=== PATIENT | female | born 1985 | race Caucasian/White ===

== ENCOUNTER 2017-03-26 17:20 | Inpatient (IN) | payer OTHER ==
[~2017-03-26] VITALS: Ht 170.2 cm; Wt 90.0 kg
[2017-03-26] VITALS (8 sets, daily range): BP systolic 122–161; BP diastolic 64–86; PULSE 65–90; TEMP 97.9–99.1
[~2017-03-26 17:20] MED LIST: B COMPLEX1 TA4 PO; IBREN600 MG PO; LORTAB 7.5/5001 TAB PO; NO HOME MEDICATIONS; PRENATAL1 TA1 PO; TYLENOL EXTRA500 M1 PO; [UNRECOGNIZED DRUG - OTHER] PO
[2017-03-26 18:26] LABS: BASO % 0.2 % (0.0-2.0); EOS % 0.2 % (0-4.0); GRAN # 7.9 (1.4-6.5); HEMATOCRIT 39.7 % (37.0-47.0); HEMOGLOBIN 13.4 g/dl (12.5-16.0); LYMPH # 1.7 (1.2-3.4); MEAN CELL VOLUME 84 fl (80.0-100.0); MEAN CORPUSCULAR HEMOGLOBIN 29 pg (27.0-31.0); MEAN CORPUSCULAR HGB CONC 34 g/dl (33.0-37.0); MEAN PLATELET VOLUME 12.4 fl (7.4-10.4); MONO # 0.9 (0.1-0.6); MONO % 8.1 % (1.7-9.3); PLATELET COUNT 137 K/mm3 (130-400); RED BLOOD COUNT 4.71 M/mm3 (4.10-5.30); REDCELL DISTRIBUTION WIDTH-CV 13.4 % (11.5-14.5); WHITE BLOOD COUNT 10.5 K/mm3 (4.8-10.8)
[2017-03-27 01:30] VITALS: BP 128/60; PULSE 76; TEMP 99.3
[2017-03-27 05:30] VITALS: BP 118/63; PULSE 72; TEMP 98.4
[2017-03-27 07:00] VITALS: BP 120/75; PULSE 66; TEMP 98.7
[2017-03-27 11:42] VITALS: BP 127/78; PULSE 75; TEMP 98.3
[2017-03-27 16:20] VITALS: BP 141/65; PULSE 76; TEMP 97.6
[2017-03-27 21:00] VITALS: BP 129/50; PULSE 63; TEMP 98.5
[2017-03-28 08:40] VITALS: BP 129/73; PULSE 82; TEMP 98.1
[2017-03-28] MEDS ORDERED: IBU800 M1 PO (09:52)
== END 2017-03-28 16:45 | disposition home or self-care (01) | DRG 775 ==
LOC: LDRO 17:20 → LDR 17:29 → OB 17:29 → LDRO 03-29 16:25
PROVIDERS: Obstetrics & Gynecology
PROC: 10E0XZZ Delivery of Products of Conception, External Approach (ICD-10-PCS; principal; 2017-03-26)
PROC: 0KQM0ZZ Repair Perineum Muscle, Open Approach (ICD-10-PCS; 2017-03-26)
DX: O62.3 Precipitate labor (principal); O70.1 Second degree perineal laceration during delivery; O99.824 Streptococcus B carrier state complicating childbirth; Z3A.39 39 weeks gestation of pregnancy; Z37.0 Single live birth
CPT/HCPCS: J2540; J2590; J7120

== ENCOUNTER 2018-05-12 13:55 | Day surgery (SDC) | payer BC ==
[~2018-05-12] VITALS: Ht 170.2 cm; Wt 75.9 kg
[~2018-05-12 13:55] MED LIST changes: +IBU800 M1 PO; +PRENATAL MVI PO
[2018-05-12] MEDS ORDERED: ZOLOFT 50MG50 MG PO (14:06)
[2018-05-12 14:39] VITALS: BP 133/80; PULSE 80; TEMP 98.7
[2018-05-12 15:55] VITALS: BP 129/75; PULSE 65
[2018-05-12 16:10] VITALS: BP 138/88; PULSE 80
[2018-05-12 16:25] VITALS: BP 133/73; PULSE 81
== END 2018-05-12 16:45 | disposition home or self-care (01) ==
LOC: SDCO 13:55
DX: Z12.11 Encounter for screening for malignant neoplasm of colon (principal); Z85.038 Personal history of other malignant neoplasm of large intestine; Z86.010 Personal history of colon polyps; Z80.0 Family history of malignant neoplasm of digestive organs; K20.9 Esophagitis, unspecified; Z98.0 Intestinal bypass and anastomosis status; K22.70 Barrett's esophagus without dysplasia; K21.9 Gastro-esophageal reflux disease without esophagitis; Z84.81 Family history of carrier of genetic disease
CPT/HCPCS: 43239; G0105; J2250; J2405; J3010; J7030

== ENCOUNTER 2019-09-11 09:03 | Day surgery (SDC) | payer BC ==
[~2019-09-11] VITALS: Ht 170.2 cm; Wt 77.8 kg
[~2019-09-11 09:03] MED LIST changes: +ZOLOFT 50MG50 MG PO
[2019-09-11] MEDS ORDERED: BUSPIRONE HCL7.5 MG PO (09:46)
[2019-09-11 09:47] VITALS: BP 128/89; PULSE 86; TEMP 98.6
[2019-09-11 11:20] VITALS: BP 124/82; PULSE 83; TEMP 97.8
--- NOTE | 2019-09-11 11:20 | NUR ---
Pt returned from procedure to room sitting up and awake and oriented. Pt requesting coffee, muffin, and water. Mother at bedside. VSS and WNL and pt denies n/v or pain. call light within reach
[2019-09-11 11:35] VITALS: BP 101/80; PULSE 84
--- NOTE | 2019-09-11 11:35 | NUR ---
Pt resting comfortably and eating second muffin. Pt states that she is feeling well and would like to go home. Physician at bedside and reviewing procedure with patient as well as plan. Pt has no further questions or concerns.
[2019-09-11 11:50] VITALS: BP 122/93; PULSE 92
--- NOTE | 2019-09-11 11:50 | NUR ---
Pt ready to go home, and she meets criteria for discharge. Discharge information reviewed with pt and mom, and they have no further concerns or questions. VSS and WNL.
== END 2019-09-11 12:00 | disposition home or self-care (01) ==
LOC: SDCO 09:03
DX: Z12.11 Encounter for screening for malignant neoplasm of colon (principal); Z85.038 Personal history of other malignant neoplasm of large intestine; Z86.010 Personal history of colon polyps; Z15.09 Genetic susceptibility to other malignant neoplasm; K21.9 Gastro-esophageal reflux disease without esophagitis; K22.70 Barrett's esophagus without dysplasia
CPT/HCPCS: J2250; J3010; J7030